=== PATIENT | female | born 1970 | race Caucasian/White ===

== ENCOUNTER → 2021-07-25 | Outpatient (CLI) | payer OTHER ==
--- NOTE | 2021-07-25 15:33 | US ---
EXAMINATION TYPE: US pelvis complete transvag DATE OF EXAM: 07/25/2021 COMPARISON: NONE CLINICAL HISTORY: N83.0 RT OVARIAN CYST. TECHNIQUE: Transvaginal (TV) and Transabdominal (TA) . Transabdominal sonographic images of the pel vis were acquired. Transvaginal sonographic images were medically necessary to better assess the fol lowing anatomy: ovaries Date of LMP: patient states she has been on cycle for 6 months. EXAM MEASUREMENTS: Uterus: 11.9 x 4.8 x 6.0 cm Endometrial Stripe: 2.1 cm Right Ovary: 6.2 x 4.9 x 5.3 cm Left Ovary: 4.8 x 4.5 x 4.2 cm 1. Uterus: Retroverted multiple fibroids, largest measures 3.8 x 3.0 x 3.7 cm. 2. Endometrium: thickened at 2.1 cm 3. Right Ovary: cyst with internal solid component measures 3.9 x 3.5 x 4.0 cm, another smaller cys t measures 2.9 x 2.6 x 2.8 cm 4. Left Ovary: two cyst, largest measures 3.7 x 3.5 x 3.0 cm 5. Bilateral Adnexa: wnl 6. Posterior cul-de-sac: no free fluid The ovaries are either very close together or it is one large ovary with multiple cysts, difficult to discern. IMPRESSION: 1. Right ovarian cystic lesion with mural nodule. Follow-up in 6 weeks is advised to exclude malignan cy. 2. Uterine leiomyomatous change.
== END | disposition home or self-care (01) ==
LOC: RADUSWWP 14:43
PROVIDERS: ATTEND Obstetrics & Gynecology
DX: D25.9 Leiomyoma of uterus, unspecified (principal); N83.201 Unspecified ovarian cyst, right side
CPT/HCPCS: 76830; 76856

== ENCOUNTER → 2021-08-17 | Outpatient (CLI) | payer OTHER ==
[2021-08-17 18:52] LABS: Basophils # (A) 0.08 X 10*3/uL (0.00-0.10); Basophils % (A) 0.6 %; Eosinophils # (A) 0.33 X 10*3/uL (0.04-0.35); Eosinophils % (A) 2.5 %; HCT 38.7 % (37.2-46.3); HGB 12.2 g/dL (12.0-15.0); Immature Grans, Automated 0.4 %; Lymphocytes # (A) 3.18 X 10*3/uL (0.90-5.00); Lymphocytes % (A) 23.7 %; MCH 28.7 pg (27.0-32.0); MCHC 31.5 g/dL (32.0-37.0); MCV 91.1 fL (80.0-97.0); Mean Platelet Volume 10.6 fL (9.5-12.2); Monocytes % (A) 10.4 %; NRBC Per 100 WBC 0 /100 WBCS (0.0-0.0); Neutrophils % (A) 62.4 %; Platelet Count 455 X 10*3/uL (140-440); RBC 4.25 X 10*6/uL (4.10-5.20); RDW 14.1 % (11.5-14.5); WBC 13.44 X 10*3/uL (4.50-10.00)
== END | disposition home or self-care (01) ==
LOC: LABPAT 12:56
PROVIDERS: ATTEND Obstetrics & Gynecology
DX: Z01.812 Encounter for preprocedural laboratory examination (principal)
CPT/HCPCS: 85025

== ENCOUNTER 2021-08-27 06:11 | Day surgery (SDC) | payer OTHER ==
[2021-08-23 14:25] VITALS: BMI 39.9
--- NOTE | 2021-08-26 17:08 | P.HPOB ---
History of Present Illness H&P Date: 08/26/21 Chief Complaint: Menorrhagia with irregular cycle, endometrial thickening This is a 50 y.o. female, 2, para 1, who presents for dilatation and curettage with hysteroscopy and Novasure endometrial ablation. 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 She had a pelvic ultrasound on 06/06/2021 that showed uterus measuring 12.1 x 6.4 x 8.2 cm with at least 1 fibroid up to 3.2 cm and endometrial thickness of 3.1 cm. Her right ovary had a thin-walled septated cyst measuring 5.7 cm. She had a pelvic MRI on 06/14/2021 showing 2 fibroids, 1 intramural and 1 subserosal, largest 3.4 cm, with evidence of adenomyosis and right ovarian cyst up to 5.9 cm with no suspicious enhancing component. Her CA- 125 level was normal at 28.9. She was advised that her uterus may be too large for Novasure ablation, but she would like it attempted if at all possible. She is also aware that if pathology comes back showing endometrial hyperplasia or cancer, she would need a hysterectomy. OB Hx: . History of 1 vaginal delivery and 1 miscarriage. 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 Partner had a vasectomy. 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 Review of Systems Constitutional: Denies chills, Denies fever Eyes: denies blurred vision, denies pain Ears, nose, mouth and throat: Denies headache, Denies sore throat Cardiovascular: Denies chest pain, Denies shortness of breath Respiratory: Denies cough Gastrointestinal: Reports heartburn, Denies abdominal pain, Denies diarrhea, Denies nausea, Denies vomiting Genitourinary: Reports abnormal vaginal bleeding, Reports dysmenorrhea, Reports menorrhagia, Reports pelvic pain Menstruation: Reports menses 8 or > days, Reports menses variable, Reports period heavy Musculoskeletal: Reports low back pain Integumentary: Denies pruritus, Denies rash Neurological: Denies numbness, Denies weakness Psychiatric: Denies anxiety, Denies depression Endocrine: Denies fatigue, Denies weight change Past Medical History Past Medical History: GERD/Reflux, Hyperlipidemia, Hypertension Additional Past Medical History / Comment(s): GOUT. DUB History of Any Multi-Drug Resistant Organisms: None Reported Past Surgical History: No Surgical Hx Reported Past Anesthesia/Blood Transfusion Reactions: No Reported Reaction Past Psychological History: No Psychological Hx Reported Smoking Status: Never smoker Past Alcohol Use History: Occasional Past Drug Use History: None Reported - Past Family History Mother Family Medical History: Hypertension Father Family Medical History: CVA/TIA, Hyperlipidemia, Hypertension, Myocardial Infarction ([place]) Additional Family Medical History / Comment(s): Gout Medications and Allergies Home Medications Medication Instructions Recorded Confirmed Type Allopurinol [Zyloprim] 300 mg PO DAILY 08/23/21 08/27/21 History Atorvastatin [Lipitor] 40 mg PO HS 08/23/21 08/27/21 History Omeprazole 20 mg PO DAILY 08/23/21 08/27/21 History amLODIPine [Norvasc] 10 mg PO DAILY 08/23/21 08/27/21 History lisinopriL 40 mg PO DAILY 08/23/21 08/27/21 History Allergies Allergy/AdvReac Type Severity Reaction Status Date / Time No Known Allergies Allergy Verified 08/27/21 06:47 Exam Osteopathic Statement: *. No significant issues noted on an osteopathic structural exam other than those noted in the History and Physical/Consult. HEENT: within normal limits Heart: regular rate and rhythm Lungs: clear to auscultation bilaterally Abdomen: soft, non-tender Pelvic: Cervix: scant bloody discharge. Uterus is bulky, retroverted, non- tender with slight tenderness bilateral adnexa and questionable fullness in right adnexa. Extremities: negative Ale's Assessment and Plan (1) Menorrhagia with irregular cycle Current Visit: No Status: Acute Code(s): N92.1 - EXCESSIVE AND FREQUENT MENSTRUATION WITH IRREGULAR CYCLE SNOMED Code(s): 477885373 (2) Endometrial thickening on ultrasound Current Visit: No Status: Acute Code(s): R93.89 - ABNORMAL FINDINGS ON DX IMAGING OF OTH BODY STRUCTURES SNOMED Code(s): 818893639 (3) Uterine leiomyoma Current Visit: No Status: Acute Code(s): D25.9 - LEIOMYOMA OF UTERUS, UNSPECIFIED SNOMED Code(s): 71774953 Plan: Proceed with dilatation and curretage with hysteroscopy and Novasure endometrial ablation. I have discussed the risks, benefits, and alternative therapies for the above- mentioned procedure and for both sedation/anesthesia as well as necessary blood products administration, if indicated, as they pertain to this patient. The patient has indicated her understanding and acceptance of the risks and procedures discussed.
[~2021-08-27 06:11] MED LIST: DEXAMETHASONE SOD PHOSPHATE 4 MG/ML 1 ML VIAL IV ONE; LACTATED RINGERS 1,000 ML IV SCH; LIDOCAINE 1% (10MG/ML) FOR IV START INTRADERMA PRN; ONDANSETRON 4 MG/2 ML VIAL IVP ONE; Pre Op ABX Message 1 EACH MISC MISCELLANE ONE; SCOPOLAMINE 1.5MG/72HR PATCH TRANSDERM ONE
[2021-08-27] MEDS ORDERED: MIDAZOLAM 2 MG/2 ML VIAL IV ONE (07:16)
[2021-08-27] MEDS ORDERED: KETOROLAC 15 MG/ML 1 ML VIAL ONE (07:39)
[2021-08-27] MEDS ORDERED: PROPOFOL 10 MG/ML 20 ML VIAL IV ONE (07:39)
[2021-08-27] MEDS ORDERED: MIDAZOLAM 2 MG/2 ML VIAL ONE (07:39)
[2021-08-27] MEDS ORDERED: SUCCINYLCHOLINE CHLORIDE 100 MG/5 ML SYR IV ONE (07:39)
[2021-08-27] MEDS ORDERED: LIDOCAINE 1% INJ 10MG/ML (20 ML MDV) ONE (07:39)
[2021-08-27] MEDS ORDERED: fentaNYL (PF) 50 MCG/ML 2 ML AMP ONE (07:39)
--- NOTE | 2021-08-27 08:12 | P.OP ---
Date of Procedure: 08/27/21 Preoperative Diagnosis: Menorrhagia with irregular cycle Uterine fibroids Endometrial thickening Postoperative Diagnosis: Same Procedure(s) Performed: Dilation and curettage with hysteroscopy and NovaSure endometrial ablation Anesthesia: GILLIAN Surgeon: Hollie Engel Estimated Blood Loss (ml): 10 Pathology: other (Endometrial curettings) Condition: stable Disposition: same day Indications for Procedure: This is a 50 y.o. female, 2, para 1, who presents for dilatation and curettage with hysteroscopy and Novasure endometrial ablation. 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 She had a pelvic ultrasound on 06/06/2021 that showed uterus measuring 12.1 x 6.4 x 8.2 cm with at least 1 fibroid up to 3.2 cm and endometrial thickness of 3.1 cm. Her right ovary had a thin-walled septated cyst measuring 5.7 cm. She had a pelvic MRI on 06/14/2021 showing 2 fibroids, 1 intramural and 1 subserosal, largest 3.4 cm, with evidence of adenomyosis and right ovarian cyst up to 5.9 cm with no suspicious enhancing component. Her CA- 125 level was normal at 28.9. She was advised that her uterus may be too large for Novasure ablation, but she would like it attempted if at all possible. She is also aware that if pathology comes back showing endometrial hyperplasia or cancer, she would need a hysterectomy. Operative Findings: Uterus is retroverted and bulky. No adnexal masses are palpated. Hysteroscopy, a very dyssynchronous endometrial pattern is noted. Both tubal ostia are visualized. Upon curetting, it a anterior fibroid is palpated. Cervix is sounded to 3-1/2 cm. Uterus is sounded to 10-1/2 cm. A moderate amount of endometrial curettings are obtained. Description of Procedure: The patient is taken to the operating room. She is placed in the dorsal lithotomy position after general anesthesia was given. She is prepped and draped in the normal sterile fashion. Bladder is drained with a catheter and then removed. Pelvic exam is performed under anesthesia. Uterus is found to be retroverted and bulky in nature with no palpable adnexal masses. She is placed in slight Trendelenburg position. A right angle retractor is used to visualize the cervix. The anterior lip of the cervix is grasped with a single-tooth tenaculum. Cervix is sounded to 3.5 cm. Uterus is sounded to 10.5 cm. Cervix is gently dilated with Lazo dilators until a hysteroscope could be passed. Hysteroscopy is performed using normal saline. The above noted findings are noted. Next a polyp forceps is introduced. A moderate amount of tissue was obtained. Next medium-sized size sharp curette was placed. Moderate amount of endometrial curettings were obtained. Next NovaSure array was inserted into the endometrial cavity. Length was set at 6.5 cm and width was determined to be 4.7 cm. Next cavity assessment was completed and passed on the first try. Next NovaSure array was fired at 168 W for 53 seconds. Next the array was removed, inspected and then discarded. Next the hysteroscope was reinserted. Uniform charring was noted. Pictures were taken. Hysteroscope was removed. Single- tooth tenaculum was removed from the anterior lip of the cervix. No bleeding was noted. All other instruments removed from the vagina. Sponge counts were correct. Patient is taken to recovery room in stable condition.
[2021-08-27 08:24] VITALS: TEMP 98
[2021-08-27] MEDS: HYDROmorphone 0.5 MG/0.5 ML SYRINGE IVP PRN ×2 (08:31→08:44)
[2021-08-27 09:53] VITALS: RESP 17
[2021-08-27 10:03] VITALS: BP 107/59; PULSE 92
== END 2021-08-27 10:32 | disposition home or self-care (01) ==
LOC: OR 06:11
PROVIDERS: ATTEND Obstetrics & Gynecology
DX: R92.1 Mammographic calcification found on diagnostic imaging of breast (principal); R93.89 Abnormal findings on diagnostic imaging of other specified body structures; K21.9 Gastro-esophageal reflux disease without esophagitis; E78.5 Hyperlipidemia, unspecified; I10 Essential (primary) hypertension; M10.9 Gout, unspecified; Z82.49 Family history of ischemic heart disease and other diseases of the circulatory system; Z83.438 Family history of other disorder of lipoprotein metabolism and other lipidemia; Z79.899 Other long term (current) drug therapy
CPT/HCPCS: 81025; 88305; 58563; J2250; J1100; J2405; J2001; J3010; J1885; J0330; J2704; J1170

== ENCOUNTER 2024-12-23 08:37 | Emergency (ER) | payer BC, OTHER ==
[2024-12-23 08:41] VITALS: RESP 18
--- NOTE | 2024-12-23 09:36 | ED ---
General Adult HPI - General Chief complaint: Extremity Problem,Nontraumatic Stated complaint: Right hip injury Time Seen by Provider: 12/23/24 08:38 Source: patient, family Mode of arrival: ambulatory Limitations: no limitations - History of Present Illness Initial comments: Dictation was produced using [employer] dictation software. please excuse any grammatical, word or spelling errors. Chief Complaint: 54-year-old female with primary complaint of right hip pain History of Present Illness: Patient is a 54-year-old female presents to the emergency department right hip pain. Patient has been having hip issues for the last month and a half. Patient denies any significant injury or inciting event. States that this morning her hip pain felt slightly worse and she felt a pop. Denies any numbness tingling paresthesias. Patient states that her hip symptoms are only apparent with certain movements. States that she is able to bear weight and ambulate. Denies any constitutional symptoms. Patient has secondary concern of chronic rash she seen a credit control administrator for she has an appointment coming up and 15 days. States that she tried triamcinolone cream which did not help she was told that it was eczema. The ROS documented in this emergency department record has been reviewed and confirmed by me. Those systems with pertinent positive or negative responses have been documented in the HPI. All other systems are other negative and/or noncontributory. - Related Data Home Medications Medication Instructions Recorded Confirmed Atorvastatin [Lipitor] 40 mg PO HS 08/23/21 08/27/21 Omeprazole 20 mg PO DAILY 08/23/21 08/27/21 allopurinoL [Zyloprim] 300 mg PO DAILY 08/23/21 08/27/21 amLODIPine [Norvasc] 10 mg PO DAILY 08/23/21 08/27/21 lisinopriL 40 mg PO DAILY 08/23/21 08/27/21 Previous Rx's Medication Instructions Recorded HYDROcodone/APAP 5-325MG [[place] 1 tab PO Q6HR PRN 3 Days #12 tab 12/23/24 5-325] Allergies Allergy/AdvReac Type Severity Reaction Status Date / Time No Known Allergies Allergy Verified 12/23/24 08:41 Review of Systems ROS Statement: Those systems with pertinent positive or pertinent negative responses have been documented in the HPI. ROS Other: All systems not noted in ROS Statement are negative. Past Medical History Past Medical History: No Reported History Past Surgical History: Cardiac Ablation Past Psychological History: No Psychological Hx Reported Smoking Status: Never smoker Past Alcohol Use History: Occasional Past Drug Use History: None Reported General Exam - General Exam Comments Initial Comments: PHYSICAL EXAM: General Impression: Alert and oriented x3, not in acute distress HEENT: Normocephalic atraumatic, extra-ocular movements intact, pupils equal and reactive to light bilaterally, mucous membranes moist. Cardiovascular: Heart regular rate and rhythm Chest: Able to complete full sentences, no retractions, no tachypnea Abdomen: abdomen soft, non-tender, non-distended, no organomegaly Musculoskeletal: Pulses present and equal in all extremities, no peripheral edema Motor: no focal deficits noted Neurological: CN II-XII grossly intact, no focal motor or sensory deficits noted Skin: Ring appearing rashes affecting both arms mostly in the intertriginous areas Psych: Normal affect and mood Hip: Slight exacerbation with flexion at the right hip Limitations: no limitations Course Vital Signs 12/23/24 08:38 Temperature 97.6 F Pulse Rate 82 Respiratory 18 Rate Blood Pressure 134/74 O2 Sat by Pulse 100 Oximetry Medical Decision Making - Medical Decision Making Was pt. sent in by a medical professional or institution (, PA, SHIP'S SURVEYOR, urgent care, hospital, or group home...) When possible be specific @ -No Did you speak to anyone other than the patient for history (EMS, parent, family, police, friend...)? What history was obtained from this source @ -No Did you review nursing and triage notes (agree or disagree)? Why? @ -I reviewed and agree with nursing and triage notes Were old charts reviewed (outside hosp., previous admission, EMS record, old EKG, old radiological studies, urgent care reports/EKG's, group home records)? Report findings @ -No old charts were reviewed Differential Diagnosis (chest pain, altered mental status, abdominal pain women, abdominal pain men, vaginal bleeding, musculoskeletal, weakness, fever, dyspnea, syncope, headache, dizziness, GI bleed, back pain, seizure, CVA, palpatations, mental health)? @ -Hip fracture, hip strain, tendinitis EKG interpreted by me (3pts min.). @ -None done X-rays interpreted by me (1pt min.). @ -Right hip x-ray shows mild osteoarthritis CT interpreted by me (1pt min.). @ -None done U/S interpreted by me (1pt. min.). @ -None done What testing was considered but not performed or refused? (CT, X-rays, U/S, l abs)? Why? @ -None What meds were considered but not given or refused? Why? @ -None Was smoking cessation discussed for >3mins.? @ -No Were there social determinants of health that impacted care today? How? (Homelessness, low income, unemployed, alcoholism, drug addiction, transportation, low edu. Level, literacy, decrease access to med. care, [facility], rehab)? @ -No Was there de-escalation of care discussed even if they declined (Discuss DNR or withdrawal of care, Hospice)? DNR status @ -No What co-morbidities impacted this encounter? (DM, HTN, Smoking, COPD, CAD, Cancer, CVA, ARF, Chemo, Hep., AIDS, mental health diagnosis, sleep apnea, morbid obesity)? @ -None Was patient admitted / discharged? Hospital course, mention meds given and route, prescriptions, significant lab abnormalities, going to OR and other pertinent info. @ -54-year-old female presents with right hip strain. Vital signs stable. X- rays unremarkable. Patient given analgesics. She is given referral to orthopedic surgery. Patient will try some antifungal cream for her rash. Did you discuss the management of the patient with other professionals (professionals i.e. , PA, SHIP'S SURVEYOR, lab, RT, psych nurse, licensed master social worker, supervisor coal handling, teacher, air defense artillery officer, insurance case manager)? Give summary @ -No Was critical care preformed (if so, how long)? @ -No Undiagnosed new problem with uncertain prognosis? @ -No Drug Therapy requiring intensive monitoring for toxicity (Heparin, Nitro, Insulin, Cardizem)? @ -No Were any procedures done? @ -No Diagnosis/symptom? Acute, or Chronic, or Acute on Chronic? Uncomplicated (without systemic symptoms) or Complicated (systemic symptoms)? @ -Right hip strain Side effects of treatment? @ -No Exacerbation, Progression, or Severe Exacerbation? @ -No Poses a threat to life or bodily function? How? (Chest pain, [place], [place], pneumonia, PE, COPD, DKA, ARF, appy, cholecystitis, CVA, Diverticulitis, Homicidal, Suicidal, threat to staff... and all critical care pts) @ -No Disposition Clinical Impression: Hip strain Disposition: HOME SELF-CARE Condition: Fair Instructions (If sedation given, give patient instructions): Hip Pain (ED) Prescriptions: HYDROcodone/APAP 5-325MG [[place] 5-325] 1 tab PO Q6HR PRN 3 Days #12 tab PRN Reason: Severe Pain Is patient prescribed a controlled substance at d/c from ED?: Yes If prescribed controlled substance>3 days was MAPS reviewed?: Prescribed <3 Days Referrals: Ambrosio Gupta MD [Primary Care Provider] - 1-2 days Nader Aden MD [STAFF PHYSICIAN] - 1-2 days Time of Disposition: 10:09
--- NOTE | 2024-12-23 09:44 | XR ---
EXAMINATION TYPE: XR Hip Complete RT DATE OF EXAM: 12/23/2024 9:06 AM COMPARISON: CLINICAL INDICATION: Female, 54 years old with history of hip pain; PHH, pain TECHNIQUE: XR Hip Complete RT; Frontal and lateral views FINDINGS: No evidence for acute process, joint dislocation or significant soft tissue swelling. Osteo phyte formation of the superior acetabulum of the hip. There is mild joint space narrowing. IMPRESSION: 1. No evidence for acute process. 2. Mild hip osteoarthrosis. [facility], , 12/23/2024 9:42 AM
[2024-12-23 10:14] VITALS: BP 130/68; PULSE 76; TEMP 98
== END 2024-12-23 10:43 | disposition home or self-care (01) ==
LOC: EC 08:37
DX: S76.011A Strain of muscle, fascia and tendon of right hip, initial encounter (principal); X58.XXXA Exposure to other specified factors, initial encounter
CPT/HCPCS: 73502; 99283